=== PATIENT | female | born 1960 | race Caucasian/White ===

== ENCOUNTER 2023-12-18 07:54 | Emergency (ER) | payer OTHER, SELFPAY ==
[2023-12-18 07:58] VITALS: BP 142/80; PULSE 73; RESP 18; TEMP 36.1; O2SAT 99; BMI 27.7
[2023-12-18 08:14] LABS: MANUAL DIFF FLAG NO
[2023-12-18 08:18] LABS: Basophils Absolute Auto 0.1 X10*3/uL (0.0-0.2); Eosinophils Absolute Auto 0.3 X10*3/uL (0.0-0.4); Eosinophils Percent Auto 3.4 % (0-4); Hematocrit 45.5 % (37.0-47.0); Hemoglobin 15.9 g/dl (12.0-16.0); Imm Gran Abs Auto 0.01 X10*3/uL (0.00-0.03); Imm Gran Pct Auto 0.1 % (0.0-0.4); Lymphocytes Absolute Auto 3.2 X10*3/uL (1.2-4.9); Lymphocytes Percent Auto 40.3 % (20-40); Mean Corpuscular HGB Conc 34.9 g/dl (31.0-35.0); Mean Corpuscular Hemoglobin 29.3 pg (27.0-33.0); Mean Corpuscular Volume 83.8 fL (80.0-98.0); Mean Platelet Volume 9.3 fL (9.4-12.3); Monocytes Absolute Auto 0.8 X10*3/uL (0.1-1.2); Monocytes Percent Auto 10.4 % (2-11); Neutrophils Absolute Auto 3.5 x10*3/uL (2.0-8.3); Neutrophils Percent Auto 44.8 % (45-73); Platelet Count 514 X10*3/uL (160-400); Red Blood Count 5.43 X10*6/uL (4.20-5.50); Red Cell Distribution Width 12.6 % (11.0-16.0); White Blood Count 7.9 X10*3/uL (4.8-10.8)
[2023-12-18 08:25] LABS: INTERNATIONAL NORM RATIO 0.9 (0.9-1.1); Prothrombin Time 10.9 SEC (11.1-13.3)
[2023-12-18 08:27] LABS: Partial Thromboplastin Time 41.8 SEC (26.0-36.8)
[2023-12-18 08:36] LABS: Anion Gap 14 (12-20); Blood Urea Nitrogen 15 mg/dL (9-16); Carbon Dioxide 27 mmol/L (22-29); Chloride 103 mmol/L (96-108); Creatinine Clr Calc Pharmacy 57.6; Estimated Glomerular Filt Rate > 60; Glucose Random 112 mg/dL (60-115); Potassium 3.2 mmol/L (3.3-5.1); Sodium 141 mmol/L (135-145)
--- NOTE | 2023-12-18 09:52 | ED_ITS ---
HPI - Neuro Symptoms/Deficit General Chief Complaint: Neuro Symptoms/Deficit Stated Complaint: r sided facial numbness Time Seen by Provider: 12/18/23 09:51 Source: patient Mode of arrival: ambulatory Limitations: no limitations History of Present Illness HPI Narrative: 63 year old female with history of HTN, HLD presenting today for evaluation of R sided facial numbness and fullness in the ear since 6:30 am this morning. Patient reports that when she woke up this morning around 6:30/7am, she noticed that the right side of her face felt asleep . She says it is not as much as a numbness feeling but a funky, asleep feeling. She states that when her started talking to her this morning, she noticed that it was difficult to hear. Her ear felt clogged. She was on her way to work when she noticed the symptoms persisted and came here. Says that the feeling is improved at this moment, but is still present. Also notes that she has pressure localized frontally. Reports that the asleep feeling is also present in the right corner of her eye laterally. history of surgery around that eye due to melanoma in the past. Denies any flu or cold like symptoms prior to this morning. Onset (ago): hour(s) Time: 06:30 Location: right face History of same: No Severity: mild Quality: improving and other Relieving factors: time Exacerbating factors: none Context: sudden onset On Anticoagulants: No Associated symptoms: denies other symptoms Treatments Prior to Arrival: none Related Data Allergies Allergy/AdvReac Type Severity Reaction Status Date / Time No Known Allergies Allergy Unverified 06/11/20 17:37 Review of Systems 2 Review of Systems: Yes all other systems are reviewed and are negative [facility] Social History Social History Advance Directives: No Advance Directives Information Provided: No Physical Exam 2 Vital Signs: Vital Signs: Last Vital Signs Temp 0 F L 12/18/23 11:12 Pulse 73 12/18/23 11:12 Resp 16 12/18/23 11:12 BP 140/81 H 12/18/23 11:12 Pulse Ox 97 12/18/23 11:12 O2 Del Method Room Air 12/18/23 11:12 BMI result Body Mass Index 27.7 Appearance: Alert. Well-appearing.Oriented X3. No acute distress. Head: normocephalic, atraumatic. Eyes: Pupils equal, round and reactive to light. ENT: Pharynx normal. No tonsillar swelling or exudate. R TM intact w/ asencio, dull appearance, ?effusion. TM is normal on the left Neck: Normal inspection. Neck supple. CVS: Normal heart rate and rhythm. Pulses normal. Respiratory: No respiratory distress. Breath sounds normal. Skin: Skin warm and dry. Normal skin color. Normal skin turgor. No rashes. Extremities: No lower extremity edema. No joint swelling. 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 Patient able to ambulate independently with normal gait. Neuro/psych: Oriented X 3. No motor deficit. No sensory deficit. CN II-XII intact. CN VII intact- appropriately raises eyebrows equally, closes eyes and holds, smiles, and able to puff out cheeks. CN XI intact- turns face left/right against resistance. Shrugs shoulders against resistance. Normal speech and cognition. Answers questions appropriately. Some nasal congestion noted in speech. Cerebellar exam including finger to nose and heel to babin exam intact. Medical Decision Making Medical Decision Making MDM Narrative: Faviola is a 63 year old female with HTN, HLD, GERD presenting today for evaluation of right sided facial numbness/tingling for 3 hours. She reports that when she awoke at 6:30/7am, she has noticed that the right side of her face was numb and she unable to hear out of her right ear. She described the numbness as falling asleep feeling and is localized to the right side of her face. States that it is improved from initial onset and that she can now hear from her right ear after it popped. On physical examination, vital signs are stable, other than she is slightly hypertensive at 142/80. She reports intact sensation of the right side of her face, other than tingling at the corner of her right eye only. Her symptoms started this morning with clogged ear and hearing loss, which are now improved. Left tympanic membrane is intact with good visualization of landmarks and light reflex. Right tympanic membrane appears dull with light reflex, but no erythema or signs of infection. Faviola has intact motor function of her cervical range of motion, upper and lower extremities. CN II-XII are intact and without concern for acute CVA. At this time and due to her improvement in symptoms since initial onset, presentation is most likely due to eustachian tube dysfunction. Differential Diagnosis Differential Diagnoses: The differential diagnosis associated with the presentation includes Acute cerebral vascular accident, transient ischemic attack, Bey's palsy, eustachian tube dysfunction, acute sinusitis, acute respiratory/viral illness. Admission/Observation Consideration of admission/observation: Escalation of care including admission/observation considered Lab Data MDM Lab Attestation statement: I reviewed the patient's lab results. mild hypokalemia, thrombocytosis 12/18/23 08:10 12/18/23 08:10 Labs: Lab Results 12/18/23 Range/Units 08:10 WBC 7.9 (4.8-10.8) X10*3/uL RBC 5.43 (4.20-5.50) X10*6/uL Hgb 15.9 (12.0-16.0) g/dl Hct 45.5 (37.0-47.0) % MCV 83.8 (80.0-98.0) fL MCH 29.3 (27.0-33.0) pg MCHC 34.9 (31.0-35.0) g/dl RDW 12.6 (11.0-16.0) % Plt Count 514 H (160-400) X10*3/uL MPV 9.3 L (9.4-12.3) fL Immature Gran % (Auto) 0.1 (0.0-0.4) % Neut % (Auto) 44.8 L (45-73) % Lymph % (Auto) 40.3 H (20-40) % [facility] % (Auto) 10.4 (2-11) % Eos % (Auto) 3.4 (0-4) % Baso % (Auto) 1.0 (0-2) % Lymph # (Auto) 3.2 (1.2-4.9) X10*3/uL [facility] # (Auto) 0.8 (0.1-1.2) X10*3/uL Eos # (Auto) 0.3 (0.0-0.4) X10*3/uL Baso # (Auto) 0.1 (0.0-0.2) X10*3/uL Abs Immat Gran (auto) 0.01 (0.00-0.03) X10*3/uL Absolute Neuts (auto) 3.5 (2.0-8.3) x10*3/uL Absolute Nucleated RBC 0.000 (0.0-0.012) X10*3/uL Nucleated RBC % (auto) 0.0 (0.0-0.2) /100WBC PT 10.9 L (11.1-13.3) SEC INR 0.9 (0.9-1.1) APTT 41.8 H (26.0-36.8) SEC Sodium 141 (135-145) mmol/L Potassium 3.2 L (3.3-5.1) mmol/L Chloride 103 (96-108) mmol/L Carbon Dioxide 27 (22-29) mmol/L Anion Gap 14 (12-20) BUN 15 (9-16) mg/dL Creatinine 0.86 (0.5-1.4) mg/dL Estim Creat Clear Calc 57.6 Estimated GFR > 60 Random Glucose 112 (60-115) mg/dL Calcium 10.0 (8.4-10.2) mg/dL Tests considered The following testing was considered but not selected: considered CT head however her exam and clinical presentation were c/w eustachian tube etiology and less likely neurologic event Prescription Management I considered prescription management with: Antibiotic Critical Care Time Critical Care Time Critical Care Time: No Discharge Plan Discharge Clinical Impression: Eustachian tube dysfunction Qualifiers: Laterality: right Qualified Code(s): H69.91 - Unspecified Eustachian tube disorder, right ear Patient Disposition: Home, Self-Care Instructions: Earache (ED) Additional Instructions: Your exam today was reassuring. Presentation most likely due to Eustachian tube dysfunction caused by viral etiology. Recommend trial of Zyrtec for relief of symptoms. If you develop new or worsening symptoms call 911 or come back to the ER for further evaluation. Interventions: ED Discharge Assessment Last Done: 12/18/23 11:12 Discharge Date/Time: 12/18/23 11:14
[2023-12-18 10:41] VITALS: BP 140/81; PULSE 73; RESP 14; O2SAT 96
[2023-12-18 11:12] VITALS: BP 140/81; PULSE 73; RESP 16; TEMP -17.7; TEMP 0; O2SAT 97
== END 2023-12-18 11:14 | disposition home or self-care (01) ==
PROVIDERS: Emergency Provider Emergency Medicine
DX: H69.91 Unspecified Eustachian tube disorder, right ear (principal); I10 Essential (primary) hypertension
CPT/HCPCS: 36415; 80048; 85025; 85610; 85730; 99283

== ENCOUNTER 2025-02-16 16:11 | Emergency (ER) | payer MEDICARE, OTHER, MEDICAID, SELFPAY ==
--- NOTE | ~2025-02-16 | XR_ITS ---
CLINICAL HISTORY: globus sensation, ?FB Soft tissue neck radiographs Comparison: None Findings: Unremarkable neck soft tissues. No radiopaque foreign bodies. There are soft tissue and vascular calcifications. Clear lung apices. No acute osseous abnormality. Impression: No radiopaque foreign body. If symptoms persist consider further evaluation with CT. This document has been electronically signed by: Aminta Johnson MD on 02/16/2025 17:34:16
--- NOTE | ~2025-02-16 | CT_ITS ---
CLINICAL HISTORY: Dysphagia with foreign body sensation with swallow --- Additional Notes or Special Instructions: Rule out mass CT soft tissue neck with contrast Comparison: CR/CO - XR SOFT TISSUE NECK - 02/16/25 17:04 EDT Findings: The visualized intracranial contents are unremarkable. Pharyngeal mucosal space, parapharyngeal fat, prevertebral tissues, and epiglottis are within normal limits. Salivary glands are unremarkable. No sialoliths. Thyroid gland is unremarkable. Visualized lung apices are clear. No acute fractures. IMPRESSION: No acute findings. No radiopaque foreign bodies identified. This document has been electronically signed by: Britney Childs MD on 02/16/2025 22:48:14
--- NOTE | 2025-02-16 16:24 | ED.URI ---
HPI - URI/Sore Throat General Chief Complaint: Skin/Abscess/Foreign Body Stated Complaint: swollen glands? painful to swallow Time Seen by Provider: 02/16/25 20:53 Source: patient Mode of arrival: ambulatory Limitations: no limitations History of Present Illness ED Provider: Dr. Boom Womack HPI Narrative: 64-year-old female with a history of hypertension, hyperlipidemia, GERD on omeprazole who presents emergency department for evaluation of painful swallowing and a foreign body sensation when she swallows. Patient ate breakfast at 09:00 hours without any difficulty. The patient states that she took her usual medications this morning at 11:00 but had no difficulty swallowing. At 14:00 hours she developed a pressure-like sensation in her throat and points to her anterior throat when asked to localize the pain. She states that the pain is a sharp pain which is constant but is worse with swallowing. She states that now when she swallows she feels like things are getting stuck in her mid throat. She states that she chewed a grape and swallowed and felt he got stuck but was able to drink liquid after swallowing the grape. Patient does have significant heartburn but she is not sure if it is worse than usual. Patient does take omeprazole 40 mg once a day for her GERD. Patient states she has been having abdominal issues which she describes as having lots of gas, feeling bloated, occasional diarrhea, but no dark stools or bloody stools. Patient denies difficulty swallowing liquids or solids over the last 1-2 weeks.. She denies weight loss or weight gain. She denies night sweats. The patient had routine labs done last week at her PCP's office. She was call this week and told that her blood work was abnormal and she needed to be referred to a specialist but was not given any more information. Related Data Previous Rx's ?Medication ?Instructions ?Recorded potassium chloride 10 mEq 10 meq PO DAILY #30 tabs 02/16/25 tablet,extended release Allergies Allergy/AdvReac Type Severity Reaction Status Date / Time No Known Allergies Allergy Verified 02/16/25 16:27 Review of Systems Review of Systems: Yes all other systems are reviewed and are negative [facility] Social History Social History Advance Directives: No Advance Directives Information Provided: No Physical Exam Vital Signs: Vital Signs: Last Vital Signs Temp 98 F 02/16/25 22:30 Pulse 88 02/16/25 22:30 Resp 19 02/16/25 22:30 BP 134/86 02/16/25 22:30 Pulse Ox 99 02/16/25 22:30 O2 Del Method Room Air 02/16/25 22:30 BMI result Body Mass Index 27.3 Vital signs revealed an elevated blood pressure otherwise unremarkable Exam: General: Awake, alert in no distress Head: Normocephalic, atraumatic EENT: PERRL, Lids normal, sclera normal, conjunctiva normal, nose normal , ears normal, throat without erythema or exudates Neck: Supple, no adenopathy, patient does have tenderness with palpation over her larynx and trachea with no tenderness palpation over the trapezius or sternocleidomastoid muscles, no masses felt on palpation Lung: breath sounds symmetric, no wheezing, rales or rhonchi Chest: symmetric movement, nontender Heart: regular rate and rhythm, normal S1, S2 no murmurs or rubs Abdomen: soft, non-tender, nondistended, normal bowel sounds Psych: Pleasant, cooperative Course Course Course Narrative: This is an RME performed by Estefania Dela Cruz CNP: Additional HPI, ROS, PE not included below will be deferred to primary provider. Patient is a 64 year old female who presents emergency department for evaluation of globus sensation in her throat. Reports that she breakfast and a few hours later began feeling this pain sensation that something was stuck. She attempted to take her medications for the day and symptoms had increased. She thought to eat a grape WHOLE as this may allow things to pass along but only worsened. She has tried to drink water and feels as though she is gagging when drinking the water coughing excessively afterwards. Otherwise denies any recent URI symptoms, sore throat, shortness of breath, difficulty breathing, chest pain. LSCTA, no respiratory distress, no hypoxia Plan: Group A strep, viral serologies, XR soft tissue neck Medications Administered Discontinued Medications Generic Name Dose Route Start Last Admin Trade Name Freq PRN Reason Stop Dose Admin Sodium Chloride 1,000 mls @ 999 mls/hr 02/16/25 21:14 02/16/25 21:46 Ns IV 02/16/25 22:14 999 mls/hr .Q1H1M STA Administration Iohexol 75 ml 02/16/25 22:26 02/16/25 22:27 Iohexol 350 Mg/Ml 100 Ml Infus..Btl IV 02/16/25 22:27 75 ml ONCE ONE Administration Potassium Chloride 40 meq 02/16/25 22:31 02/16/25 22:40 Potassium Chloride Packet 20 Meq Packet PO 02/16/25 22:32 40 meq ONCE ONE Administration Medical Decision Making Medical Decision Making MDM Narrative: 64-year-old female with a history of hypertension, hyperlipidemia, GERD on omeprazole who presents emergency department for evaluation of painful swallowing and a foreign body sensation when she swallows. Patient ate breakfast at 09:00 hours without any difficulty. The patient states that she took her usual medications this morning at 11:00 but had no difficulty swallowing. At 14:00 hours she developed a pressure-like sensation in her throat and points to her anterior throat when asked to localize the pain. She states that the pain is a sharp pain which is constant but is worse with swallowing. She states that now when she swallows she feels like things are getting stuck in her mid throat. She states that she chewed a grape and swallowed and felt he got stuck but was able to drink liquid after swallowing the grape. Patient does have significant heartburn but she is not sure if it is worse than usual. Patient does take omeprazole 40 mg once a day for her GERD. Patient states she has been having abdominal issues which she describes as having lots of gas, feeling bloated, occasional diarrhea, but no dark stools or bloody stools. Patient denies difficulty swallowing liquids or solids over the last 1-2 weeks.. She denies weight loss or weight gain. She denies night sweats. The patient had routine labs done last week at her PCP's office. She was call this week and told that her blood work was abnormal and she needed to be referred to a specialist but was not given any more information. Vital signs revealed an elevated blood pressure. The patient does have tenderness palpation of the anterior throat over the trachea and larynx with no masses felt on palpation. Differential diagnosis: ?Includes but is not limited to viral/bacterial pharyngitis, esophageal foreign body, GERD, globus, neck mass, anemia, electrolyte abnormalities Course: 22:28 My interpretation patient's laboratory evaluation is as follows: Potassium low 3.0. Bicarb elevated 30. BUN elevated 18 with a normal creatinine. Glucose elevated 119. AST and ALT elevated 49 and 61. WBC elevated 12,400. Platelet count elevated 549,000. COVID-19, influenza, RSV were negative. Rapid strep was negative. CRP was not elevated 0.32. ESR elevated 24. Plain film of the neck revealed no significant abnormalities. CT scan of the soft tissues of the neck with IV contrast also revealed no significant abnormalities which is reassuring. At this time I do not think that the patient has an esophageal foreign body or a large malignancy causing her odynophagia and dysphagia. Patient does have significant GERD and I suspect that her symptoms may be caused by globus and I did discuss this with her. The patient is already on the maximum dose of Prilosec 20 mg once a day. I recommended that the patient take extra-strength Gaviscon 10 mL 4 times a day for the next week to see if this improves your symptoms. Patient did have a low potassium and was given potassium chloride 40 mEq orally. She was given printed and verbal instructions and discharged home. Admission/Observation Consideration of admission/observation: Escalation of care including admission/observation considered (Yes) Lab Data MDM Lab Attestation statement: I reviewed the patient's lab results. 02/16/25 21:44 02/16/25 21:44 Labs: Lab Results 02/16/25 02/16/25 Range/Units 17:16 21:44 WBC 12.4 H (4.8-10.8) X10*3/uL RBC 5.24 (4.20-5.50) X10*6/uL Hgb 15.4 (12.0-16.0) g/dl Hct 43.9 (37.0-47.0) % MCV 83.8 (80.0-98.0) fL MCH 29.4 (27.0-33.0) pg MCHC 35.1 H (31.0-35.0) g/dl RDW 12.9 (11.0-16.0) % Plt Count 549 H (160-400) X10*3/uL MPV 9.0 L (9.4-12.3) fL Immature Gran % (Auto) 0.2 (0.0-0.4) % Neut % (Auto) 55.7 (45-73) % Lymph % (Auto) 32.0 (20-40) % [place] % (Auto) 8.8 (2-11) % Eos % (Auto) 2.6 (0-4) % Baso % (Auto) 0.7 (0-2) % Lymph # (Auto) 4.0 (1.2-4.9) X10*3/uL [place] # (Auto) 1.1 (0.1-1.2) X10*3/uL Eos # (Auto) 0.3 (0.0-0.4) X10*3/uL Baso # (Auto) 0.1 (0.0-0.2) X10*3/uL Abs Immat Gran (auto) 0.03 (0.00-0.03) X10*3/uL Absolute Neuts (auto) 6.9 (2.0-8.3) x10*3/uL Absolute Nucleated RBC 0.000 (0.0-0.012) X10*3/uL Nucleated RBC % (auto) 0.0 (0.0-0.2) /100WBC ESR 24 H (0-20) MM/HR Sodium 142 (135-145) mmol/L Potassium 3.0 L (3.3-5.1) mmol/L Chloride 101 (96-108) mmol/L Carbon Dioxide 30 H (22-29) mmol/L Anion Gap 14 (12-20) BUN 18 H (9-16) mg/dL Creatinine 0.93 (0.5-1.4) mg/dL Estim Creat Clear Calc 52.2 Estimated GFR > 60 Random Glucose 119 H (60-115) mg/dL Calcium 10.1 (8.4-10.2) mg/dL Total Bilirubin 0.5 (0.0-1.0) mg/dL AST 49 H (5-31) U/L ALT 61 H (0-31) U/L Alkaline Phosphatase 107 (39-117) U/L Total Creatine Kinase 124 (26-140) U/L C-Reactive Protein 0.37 (< or = 0.50) mg/dL Total Protein 8.3 H (6.5-8.0) g/dL Albumin 4.8 (3.5-5.0) g/dL Lipase 41 (8-78) U/L Influenza Type A (PCR) NEGATIVE (Negative) Influenza Type B (PCR) NEGATIVE (Negative) RSV RNA Qual (PCR) NEGATIVE (Negative) SARS-CoV-2 RNA (RT-PCR) NEGATIVE (Negative) S. pyogenes GrpA VALERIA Negative (Negative) Radiology Impression Discussion of test interpretation with radiology: I have reviewed the radiologist's reading. Radiologist Impression: Soft tissue neck radiographs Comparison: None Findings: Unremarkable neck soft tissues. No radiopaque foreign bodies. There are soft tissue and vascular calcifications. Clear lung apices. No acute osseous abnormality. Impression: No radiopaque foreign body. If symptoms persist consider further evaluation with CT. This document has been electronically signed by: Aminta Johnson MD on 02/16/2025 17:34:16 CT soft tissue neck with contrast Comparison: CR/WI - XR SOFT TISSUE NECK - 02/16/25 17:04 EDT Findings: The visualized intracranial contents are unremarkable. Pharyngeal mucosal space, parapharyngeal fat, prevertebral tissues, and epiglottis are within normal limits. Salivary glands are unremarkable. No sialoliths. Thyroid gland is unremarkable. Visualized lung apices are clear. No acute fractures. IMPRESSION: No acute findings. No radiopaque foreign bodies identified. This document has been electronically signed by: Britney Childs MD on 02/16/2025 22:48:14 Discharge Plan Discharge Clinical Impression: Globus sensation, Odynophagia, Thrombocytosis, Hypokalemia, Gastroesophageal reflux disease Patient Disposition: Home, Self-Care Additional Instructions: Your blood work revealed a low potassium, slight elevation in your liver tests and an elevated platelet count. None of these abnormalities are related to your symptoms. Your platelet count was 549,000 with the normal range being between 140,000 and 400,000. You should talk to your doctor about this elevated platelet count and see if this is the abnormality that they were referring you to the specialist. The low potassium is most likely caused by your blood pressure medicine chlorthalidone. Take K Dur 20 mEq daily to help prevent low potassiums. I gave you a 1 month supply. You should talk to your doctor to see if this is a medication that you should take on a regular basis with your chlorthalidone The plain x-ray of your neck was normal. The CT soft tissue of your neck with IV contrast did not reveal any neck masses or any abnormalities to explain the pain with swallowing or the sensation that something is stuck in your throat. Given the fact that everything is normal today I suspect that you have globus (the sensation that something is stuck in the back of your throat). This is often caused by too much acid in your stomach that travels up your throat and causes pain in your throat and the feeling like something is stuck in your throat. Continue taking your Prilosec 40 mg once a day. Take extra-strength Gaviscon 10 mL (2 tsp) 4 times a day as for 1 week then as needed for pain with swallowing or globus sensation. Follow-up with your doctor in 2 days. Please return to the emergency department if your symptoms get worse or if you develop any symptoms that are concerning to you. Prescriptions: New potassium chloride 10 mEq tablet extended release 10 meq PO DAILY Qty: 30 0RF Print Language: Taiwanese
[2025-02-16 16:25] VITALS: BP 135/91; PULSE 95; RESP 18; TEMP 36.8; O2SAT 95; BMI 27.3
[2025-02-16 17:32] LABS: IDNOW Serial# 55D5AD1C; Strep A Nucleic Acid Negative (Negative)
[2025-02-16 18:03] LABS: Influenza A PCR NEGATIVE (Negative); Influenza B PCR NEGATIVE (Negative); Resp Syncy Virus RNA Qual PCR NEGATIVE (Negative); SARS COV2 PCR INHOUSE NEGATIVE (Negative)
[2025-02-16] MEDS: 0.9 % Sodium Chloride 1,000 ML 999 ML IV (21:46)
[2025-02-16 21:50] LABS: MANUAL DIFF FLAG NO
[2025-02-16 21:51] LABS: Basophils Absolute Auto 0.1 X10*3/uL (0.0-0.2); Basophils Percent Auto 0.7 % (0-2); Eosinophils Absolute Auto 0.3 X10*3/uL (0.0-0.4); Eosinophils Percent Auto 2.6 % (0-4); Hematocrit 43.9 % (37.0-47.0); Hemoglobin 15.4 g/dl (12.0-16.0); Imm Gran Abs Auto 0.03 X10*3/uL (0.00-0.03); Imm Gran Pct Auto 0.2 % (0.0-0.4); Mean Corpuscular HGB Conc 35.1 g/dl (31.0-35.0); Mean Corpuscular Hemoglobin 29.4 pg (27.0-33.0); Mean Corpuscular Volume 83.8 fL (80.0-98.0); Monocytes Absolute Auto 1.1 X10*3/uL (0.1-1.2); Monocytes Percent Auto 8.8 % (2-11); Neutrophils Absolute Auto 6.9 x10*3/uL (2.0-8.3); Neutrophils Percent Auto 55.7 % (45-73); Platelet Count 549 X10*3/uL (160-400); Red Blood Count 5.24 X10*6/uL (4.20-5.50); Red Cell Distribution Width 12.9 % (11.0-16.0); White Blood Count 12.4 X10*3/uL (4.8-10.8)
[2025-02-16 22:05] LABS: Alanine Aminotransferase 61 U/L (0-31); Albumin Level 4.8 g/dL (3.5-5.0); Alkaline Phosphatase 107 U/L (39-117); Anion Gap 14 (12-20); Aspartate Amino Transferase 49 U/L (5-31); Bilirubin Total 0.5 mg/dL (0.0-1.0); Blood Urea Nitrogen 18 mg/dL (9-16); C Reactive Protein 0.37 mg/dL (< or = 0.50); Calcium 10.1 mg/dL (8.4-10.2); Carbon Dioxide 30 mmol/L (22-29); Chloride 101 mmol/L (96-108); Creatinine Clr Calc Pharmacy 52.2; Estimated Glomerular Filt Rate > 60; Glucose Random 119 mg/dL (60-115); Lipase 41 U/L (8-78); Sodium 142 mmol/L (135-145); Total Protein 8.3 g/dL (6.5-8.0)
[2025-02-16] MEDS: iohexoL 350 MG/ML 100 ML INFUS..BTL 75 ML IV (22:27)
[2025-02-16 22:30] VITALS: BP 134/86; PULSE 88; RESP 19; TEMP 36.6; O2SAT 99
[2025-02-16 22:30] LABS: Erythrocyte Sedimentation Rate 24 MM/HR (0-20)
[2025-02-16] MEDS: Potassium Chloride Packet 20 MEQ PACKET 40 MEQ PO (22:40)
--- NOTE | 2025-02-16 22:50 | PC.NURSE ---
NS infusion ended at 2246, unable to end in MAR
[2025-02-16 23:35] VITALS: BP 134/86; PULSE 88; RESP 19; TEMP 36.6; O2SAT 99
== END 2025-02-16 23:36 | disposition home or self-care (01) ==
PROVIDERS: Nurse Practitioner Family; Emergency Provider Emergency Medicine Emergency Medical Services; PCP Internal Medicine
DX: K21.9 Gastro-esophageal reflux disease without esophagitis (principal); R13.10 Dysphagia, unspecified; D47.3 Essential (hemorrhagic) thrombocythemia; Z79.899 Other long term (current) drug therapy; Z03.818 Encounter for observation for suspected exposure to other biological agents ruled out
CPT/HCPCS: 0241U; 36415; 70360; 70491; 80053; 82550; 83690; 85025; 85652; 86140; 87651; 99284; Q9967

== ENCOUNTER → 2025-02-16 16:28 | Outpatient (BNV) | payer OTHER, SELFPAY | PROVIDERS: PCP Internal Medicine; Visit Provider Radiology Diagnostic Radiology | DX: R09.A2 Foreign body sensation, throat (principal) | CPT/HCPCS: 70360; 70491 ==